=== PATIENT | female | born 1970 | race Caucasian/White ===

== ENCOUNTER 2018-09-09 13:01 | Outpatient (CLI) | payer OTHER | END 2018-09-09 23:59 | disposition home or self-care (01) | LOC: CFH 13:01 | PROVIDERS: ATTEND Specialist | DX: Z02.9 Encounter for administrative examinations, unspecified (principal) ==

== ENCOUNTER → 2018-09-30 | Outpatient (CLI) | payer OTHER | END | disposition home or self-care (01) | LOC: CFH 12:19 | PROVIDERS: ATTEND Specialist | DX: N64.4 Mastodynia (principal); N64.52 Nipple discharge | CPT/HCPCS: 76641; 77066; G0279 ==